=== PATIENT | male | born 1995 | race Caucasian/White ===

== ENCOUNTER 2024-01-22 11:37 | Outpatient (CLI) | payer BC, SELFPAY ==
[2024-01-22 14:53] LABS: Strep A DNA Probe* NOT DETECTED (Not Detectd)
== END 2024-01-22 11:38 | disposition home or self-care (01) ==
PROVIDERS: PCP Nurse Practitioner Family; Visit Provider Nurse Practitioner Family
DX: R50.9 Fever, unspecified (principal)
CPT/HCPCS: 85025; 85651; 86140; 87651